=== PATIENT | female | born 1945 | race Caucasian/White ===

== ENCOUNTER → 2016-08-05 | Outpatient (CLI) | payer MEDICARE ==
--- NOTE | 2016-08-05 11:08 | MM ---
Reason for exam: follow-up at short interval from prior study. Last mammogram was performed 7 months ago. History: Patient is postmenopausal and history of other cancer. Took estrogen for 11 years 3 months beginning at age 51. Took progesterone for 11 years 3 months beginning at age 51. Physical Findings: Nurse did not find any significant physical abnormalities on exam. MG 3D Diag Mammo W/Cad RT CC and MLO view(s) were taken of the right breast. Prior study comparison: December 25, 2015, right breast MG 3d work up w/cad RT. December 22, 2015, bilateral MG screening mammo w CAD. No significant new findings when compared with previous films. These results were verbally communicated with the patient and result sheet given to the patient on 08/05/16. ASSESSMENT: Benign, BI-RAD 2 RECOMMENDATION: Return to routine screening mammogram schedule for both breasts. Back on schedule.
== END | disposition home or self-care (01) ==
LOC: RADMAMWWP 10:20
PROVIDERS: ATTEND Family Medicine
DX: R91.8 Other nonspecific abnormal finding of lung field (principal)
CPT/HCPCS: G0206; G0279

== ENCOUNTER → 2016-12-30 | Outpatient (CLI) | payer MEDICARE ==
--- NOTE | 2017-01-03 08:16 | MM ---
Reason for exam: screening (asymptomatic). Last mammogram was performed 5 months ago. History: Patient is postmenopausal and history of other cancer. Took estrogen for 11 years 3 months beginning at age 51. Took progesterone for 11 years 3 months beginning at age 51. Physical Findings: A clinical breast exam by your physician is recommended on an annual basis and results should be correlated with mammographic findings. MG 3D Screening Mammo W/Cad Bilateral CC and MLO view(s) were taken. Prior study comparison: August 05, 2016, right breast MG 3d diag mammo w/cad RT. December 25, 2015, right breast MG 3d work up w/cad RT. No significant changes when compared with prior studies. ASSESSMENT: Benign, BI-RAD 2 RECOMMENDATION: Routine screening mammogram of both breasts in 1 year.
== END | disposition home or self-care (01) ==
LOC: RADMAMWWP 14:50
PROVIDERS: ATTEND Family Medicine
DX: Z12.31 Encounter for screening mammogram for malignant neoplasm of breast (principal)
CPT/HCPCS: 77063; G0202

== ENCOUNTER → 2018-01-11 | Outpatient (CLI) | payer MEDICARE ==
--- NOTE | 2018-01-12 13:09 | MM ---
Reason for exam: screening (asymptomatic). Last mammogram was performed 1 year ago. History: Patient is postmenopausal and history of other cancer. Took estrogen for 11 years 3 months beginning at age 51. Took progesterone for 11 years 3 months beginning at age 51. MG 3D Screening Mammo W/Cad Bilateral CC and MLO view(s) were taken. Prior study comparison: December 30, 2016, bilateral MG 3d screening mammo w/cad. August 05, 2016, right breast MG 3d diag mammo w/cad RT. There are scattered fibroglandular densities. No significant changes when compared with prior studies. ASSESSMENT: Negative, BI-RAD 1 RECOMMENDATION: Routine screening mammogram of both breasts in 1 year.
== END | disposition home or self-care (01) ==
LOC: RADMAMWWP 09:14
PROVIDERS: ATTEND Family Medicine
DX: Z12.31 Encounter for screening mammogram for malignant neoplasm of breast (principal)
CPT/HCPCS: 77063; 77067

== ENCOUNTER → 2019-02-01 | Outpatient (CLI) | payer MEDICARE ==
--- NOTE | 2019-02-01 10:38 | BD ---
EXAMINATION TYPE: Axial Bone Density DATE OF EXAM: 02/01/2019 COMPARISON: 12.22.2015 CLINICAL HISTORY: 74 YR OLD FEMALE.....ICD-10 CODE: Z78.0 MENOPAUSAL STATE Height: 66.5 Weight: 136 FRAX RISK QUESTIONS: History of Fracture in Adulthood: YES RISK FACTORS HISTORY OF: HX OF BROKEN RIBS X7 > AGE 51 YRS OLD Active: YES Postmenopausal woman: YES AT 54 YRS OLD Take estrogen and/or progesterone medications: IN THE PAST FOR 6 YRS, AND PRIOR TO THAT BCPs FOR 20 Y RS Hyperparathyroidism: NO Adrenal Insufficiency: NO MEDICATIONS: Additional Medications: NOTHING TO NOTE Additional History: NOTHING TO NOTE HERE EXAM MEASUREMENTS: Bone mineral densitometry was performed using the [employer] System. Bone mineral density as measured about the Lumbar spine is: ----- L1-L4(G/cm2): 0.956 T Score Values are as follows: ----- L1: -2.2 ----- L2: -2.1 ----- L3: -1.4 ----- L4: -2.0 ----- L1-L4: -1.9 Bone mineral density has: Decreased -1.4% since study of: 12.22.2015 Bone mineral density about the R hip (g/cm2): 0.712 Bone mineral density about the L hip (g/cm2): 0.780 T Score values are as follows: -----R Neck: -2.8 -----L Neck: -1.7 -----R Total: -2.3 -----L Total: -1.8 Bone mineral density has: Decreased -7.1% since study of: 12.22.2015 FRAX%s: THERE IS A 25.2% CHANCE FOR A MAJOR OSTEOPOROTIC FX AND A 8.4% FOR HIP......PROBABILITY FO R FX IN 10 YRS TIME IMPRESSION: Osteopenia about the lumbar spine and bilateral femora. NOTE: T-SCORE=SD OF THE YOUNG ADULT MEAN.
--- NOTE | 2019-02-02 09:27 | MM ---
Reason for exam: screening (asymptomatic). Last mammogram was performed 1 year and 1 month ago. History: Patient is postmenopausal and history of other cancer. Took estrogen for 11 years 3 months beginning at age 51. Took progesterone for 11 years 3 months beginning at age 51. Physical Findings: A clinical breast exam by your physician is recommended on an annual basis and results should be correlated with mammographic findings. MG 3D Screening Mammo W/Cad Bilateral CC and MLO view(s) were taken. Prior study comparison: January 11, 2018, bilateral MG 3d screening mammo w/cad. December 30, 2016, bilateral MG 3d screening mammo w/cad. The breast tissue is heterogeneously dense. This may lower the sensitivity of mammography. Scattered asymmetric densities are unchanged. No persisting abnormality on 3D images. No significant changes when compared with prior studies. ASSESSMENT: Negative, BI-RAD 1 RECOMMENDATION: Routine screening mammogram of both breasts in 1 year.
== END ==
LOC: RADMAMWWP 06:53
PROVIDERS: ATTEND Family Medicine
DX: Z12.31 Encounter for screening mammogram for malignant neoplasm of breast (principal); M85.89 Other specified disorders of bone density and structure, multiple sites; Z78.0 Asymptomatic menopausal state
CPT/HCPCS: 77063; 77067; 77080

== ENCOUNTER 2020-09-22 10:39 | Emergency (ER) | payer MEDICARE ==
[2020-09-22 10:44] VITALS: RESP 18; TEMP 97.9
[2020-09-22] MEDS ORDERED: MORPHINE SULFATE 4 MG/ML SYRINGE IM STA (11:12)
[2020-09-22] MEDS ORDERED: LORazepam 1 MG TAB PO STA (11:12)
[2020-09-22] MEDS ORDERED: GELATIN SPONGE,ABSORB (SMALL) 1 EACH SPONGE TOPICAL STA (11:19)
--- NOTE | 2020-09-22 11:22 | ED ---
General Adult HPI - General Chief complaint: Extremity Injury, Upper Stated complaint: 2 finger tips cut off Time Seen by Provider: 09/22/20 10:53 Source: patient, RN notes reviewed Mode of arrival: wheelchair Limitations: no limitations - History of Present Illness Initial comments: 75-year-old female presents to the emergency room for a chief complaint of laceration. Patient was using a roller cutter to cut fabric when she accidentally lacerated the radial aspect of the left second and third digits. This does involve the nail but does not appear to be down to the bone. Mild bleeding noted. She is up-to-date on tetanus within the past 5 years.Patient has no other complaints at this time including shortness of breath, chest pain, abdominal pain, nausea or vomiting, headache, or visual changes. - Related Data Previous Rx's Medication Instructions Recorded Cephalexin [Keflex] 500 mg PO Q6HR 7 Days #28 cap 09/22/20 Allergies Allergy/AdvReac Type Severity Reaction Status Date / Time honey Allergy Abdominal Verified 09/22/20 10:44 Pain Review of Systems ROS Statement: Those systems with pertinent positive or pertinent negative responses have been documented in the HPI. ROS Other: All systems not noted in ROS Statement are negative. Past Medical History Past Medical History: No Reported History History of Any Multi-Drug Resistant Organisms: None Reported Past Surgical History: Orthopedic Surgery Additional Past Surgical History / Comment(s): feet Smoking Status: Never smoker Past Alcohol Use History: Occasional Past Drug Use History: None Reported General Exam - General Exam Comments Initial Comments: L second digit: Patient has superficial avulsion noted of the radial aspect of the left second digit distal phalanx. This does involve nail bed. Capillary refill less than 2 seconds. Left third digit: Superficial avulsion noted to the radial aspect of the distal phalanx involving nail bed. Does not seem to involve bone Limitations: no limitations General appearance: alert, in no apparent distress Head exam: Present: atraumatic, normocephalic, normal inspection Eye exam: Present: normal appearance, PERRL, EOMI. Absent: scleral icterus, conjunctival injection, periorbital swelling ENT exam: Present: normal exam Neck exam: Present: normal inspection, full ROM. Absent: tenderness Respiratory exam: Present: normal lung sounds bilaterally. Absent: respiratory distress, wheezes Cardiovascular Exam: Present: regular rate, normal rhythm, normal heart sounds Course Vital Signs 09/22/20 09/22/20 09/22/20 10:41 11:37 12:07 Temperature 97.9 F Pulse Rate 84 73 69 Respiratory 18 18 18 Rate Blood Pressure 183/96 145/97 152/96 O2 Sat by Pulse 99 97 97 Oximetry 09/22/20 13:37 Temperature 97.9 F Pulse Rate 73 Respiratory 18 Rate Blood Pressure 141/85 O2 Sat by Pulse 97 Oximetry Medical Decision Making - Medical Decision Making X-ray was recommended however patient adamantly refused. States that she saw it was only soft tissue and did not involve bone. I did irrigate the wounds thoroughly with saline pressure irrigation. Initially tried to apply Gelfoam however the wound on the second finger was bleeding. Therefore let was applied and pressure was applied for 15 minutes. This did stop the bleeding. Gelfoam applied to both fingers and fingers wrapped. Tetanus is arty up-to-date. Patient discharged home to follow up with primary care. Care parameters discussed. She will return here for any worsening symptoms. Disposition Clinical Impression: Avulsion of skin of finger Disposition: HOME SELF-CARE Condition: Good Instructions (If sedation given, give patient instructions): Skin Avulsion (ED) Additional Instructions: Keep gauze in place until Tuesday. At that time on wrapped gauze and soak off the Gelfoam. If gauze comes out of place before Tuesday you can trim gauze off of the Gelfoam. Take antibiotic as directed. Alternate Motrin and Tylenol 3 as needed. You can alternate these every [address] all taking Tylenol 3. Follow-up with your doctor. Return to the emergency room for any worsening symptoms or signs of infection Prescriptions: Cephalexin [Keflex] 500 mg PO Q6HR 7 Days #28 cap Is patient prescribed a controlled substance at d/c from ED?: No Referrals: Serjio Lewis MD [Primary Care Provider] - 1-2 days Time of Disposition: 13:24
[2020-09-22] MEDS ORDERED: GELATIN SPONGE,ABSORB (LARGE) 1 EACH SPONGE TOPICAL STA (12:16)
[2020-09-22] MEDS ORDERED: LIDOCAINE/EPINEPHR/TETRACAINE 5 ML BOTTLE TOPICAL STA (12:18)
[2020-09-22] MEDS ORDERED: LIDOCAINE 1% INJ 10MG/ML (20 ML MDV) SQ ONE (12:18)
[2020-09-22] MEDS ORDERED: ACET/COD 300 MG/30 MG STARTER PACK 6 TAB BTL PO STA (13:25)
[2020-09-22] MEDS ORDERED: CEPHALEXIN 500MG STARTER PACK 4 CAP BTL PO STA (13:25)
[2020-09-22 13:39] VITALS: BP 141/85; PULSE 73
== END 2020-09-22 13:38 | disposition home or self-care (01) ==
LOC: EC 10:39
DX: S61.301A Unspecified open wound of left index finger with damage to nail, initial encounter (principal); S61.303A Unspecified open wound of left middle finger with damage to nail, initial encounter; W26.8XXA Contact with other sharp object(s), not elsewhere classified, initial encounter
CPT/HCPCS: 96372; 99282; J2270; J2001

== ENCOUNTER 2020-12-18 07:57 | Day surgery (SDC) | payer MEDICARE ==
[2020-12-15 12:19] VITALS: BMI 21.1
[~2020-12-18 07:57] MED LIST: LACTATED RINGERS 1,000 ML IV SCH
[2020-12-18 08:21] VITALS: RESP 16; TEMP 97.4
--- NOTE | 2020-12-18 08:23 | P.GSHP ---
History of Present Illness H&P Date: 12/18/20 CHIEF COMPLAINT: Colon screen HISTORY OF PRESENT ILLNESS: The patient is a 75-year-old female who presents for colon screen. Lower endoscopy was offered for further evaluation and management. PAST MEDICAL HISTORY: Please see list. PAST SURGICAL HISTORY: Please see list. MEDICATIONS: Please see list. ALLERGIES: Please see list. SOCIAL HISTORY: No illicit drug use FAMILY HISTORY: No reports of Crohn disease or ulcerative colitis. REVIEW OF ORGAN SYSTEMS: CONSTITUTIONAL: No reports of fevers or chills. PHYSICAL EXAM: VITAL SIGNS: Stable GENERAL: Well-developed pleasant in no acute distress. HEENT: No scleral icterus. Extraocular movements grossly intact. Moist buccal mucosa. NECK: Supple without lymphadenopathy. CHEST: Unlabored respirations. Equal bilateral excursions. CARDIOVASCULAR: Regular rate and rhythm. Distal 2+ pulses. ABDOMEN: Soft, nontender, nondistended. MUSCULOSKELETAL: No clubbing, cyanosis, or edema. ASSESSMENT: 1. Colon screen. PLAN: 1. Recommend proceeding with a lower endoscopy Past Medical History Past Medical History: No Reported History History of Any Multi-Drug Resistant Organisms: None Reported Past Surgical History: Orthopedic Surgery Additional Past Surgical History / Comment(s): kassandra galindo's neuroma surg., colonoscopies, kassandra cataracts removed Past Anesthesia/Blood Transfusion Reactions: No Reported Reaction Smoking Status: Never smoker - Past Family History Sister(s) Family Medical History: Cancer Additional Family Medical History / Comment(s): colon Brother(s) Family Medical History: Cancer Additional Family Medical History / Comment(s): colon Medications and Allergies Home Medications Medication Instructions Recorded Confirmed Type Ascorbic Acid [Vitamin C] 500 mg PO DAILY 12/15/20 12/15/20 History Cholecalciferol [Vitamin D3 (25 25 mcg PO DAILY 12/15/20 12/15/20 History Mcg = 1000 Iu)] Zinc 50 mg PO DAILY 12/15/20 12/15/20 History Allergies Allergy/AdvReac Type Severity Reaction Status Date / Time honey Allergy Abdominal Verified 12/15/20 12:04 Pain Surgical - Exam Vital Signs Temp Pulse Resp BP Pulse Ox 97.4 F L 68 16 151/84 98 12/18/20 08:20 12/18/20 08:20 12/18/20 08:20 12/18/20 08:20 12/18/20 08:20
[2020-12-18] MEDS ORDERED: PROPOFOL 10 MG/ML 20 ML VIAL IV ONE (08:46)
--- NOTE | 2020-12-18 09:15 | P.PCN ---
Date of Procedure: 12/18/20 Description of Procedure: PREOPERATIVE DIAGNOSIS: Family history malignant colon polyps Colonoscopy screening POSTOPERATIVE DIAGNOSIS: Family history malignant colon polyps Colonoscopy screening Tubular adenoma sigmoid colon Scattered diverticulosis OPERATION: Colonoscopy to the ileocecal valve and appendiceal orifice, cecum Colonoscopy with cold forceps biopsy SURGEON: Jeny Tovar MD. ANESTHESIA: MAC. INDICATIONS: The patient is an 75-year-old female who presents family history of malignant colon polyps. Last colonoscopy 7 years. Benefits and risks were described and informed consent was obtained. DESCRIPTION OF PROCEDURE: The patient had undergone Sutab prep. The patient had been brought into the operating room and laid in the left lateral decubitus position. After adequate intravenous sedation, the rectum was examined with 2% lidocaine jelly. The prostate was unremarkable. External hemorrhoids were encountered. The rectal tone was within normal limits. No lesions were palpated in the rectal vault. An Olympus colonoscope was advanced until the cecum, ileocecal valve and appendiceal orifice were clearly viewed. The prep was excellent. Sigmoid diverticulosis was encountered. Colonic polyps were found and removed. No evidence of focal colitis was found. Retroflexion of the scope demonstrated grade 1 internal hemorrhoids without active bleeding or inflammation. The colon was desufflated. The patient had tolerated the procedure well. Withdrawal time was over 6 minutes. FINDINGS: Aronchick preparation quality scale 1 (1-5) Internal hemorrhoids, grade 1 External hemorrhoids, grade 1. No arteriovenous malformations. Sigmoid diverticulosis Removal of 2 polyps: - Cold forceps biopsy at 20 cm from the anal verge, 4 mm to 5 mm polyps, sigmoid colon No focal colitis. RECOMMENDATIONS: Repeat colonoscopy 3 years, 2023 Plan - Discharge Summary Discharge Rx Participant: No New Discharge Prescriptions: Continue Ascorbic Acid [Vitamin C] 500 mg PO DAILY Cholecalciferol [Vitamin D3 (25 Mcg = 1000 Iu)] 25 mcg PO DAILY Zinc 50 mg PO DAILY Discharge Medication List Ascorbic Acid [Vitamin C] 500 mg PO DAILY 12/15/20 [History] Cholecalciferol [Vitamin D3 (25 Mcg = 1000 Iu)] 25 mcg PO DAILY 12/15/20 [History] Zinc 50 mg PO DAILY 12/15/20 [History] Follow up Appointment(s)/Referral(s): Jeny Tovar MD [STAFF PHYSICIAN] - As Needed Patient Instructions/Handouts: Colorectal Polyps (DC), Colonoscopy (DC), Diverticulosis Diet (GEN), Diverticulosis (DC) Activity/Diet/Wound Care/Special Instructions: Repeat colonoscopy 3 years, 2022 Discharge Disposition: HOME SELF-CARE
[2020-12-18 09:27] VITALS: BP 129/81; PULSE 55
== END 2020-12-18 09:45 | disposition home or self-care (01) ==
LOC: ORWHC2ENDO 07:57
PROVIDERS: ATTEND Surgery Plastic and Reconstructive Surgery
DX: Z12.11 Encounter for screening for malignant neoplasm of colon (principal); K63.5 Polyp of colon; K57.30 Diverticulosis of large intestine without perforation or abscess without bleeding; Z80.0 Family history of malignant neoplasm of digestive organs; K64.0 First degree hemorrhoids; Z98.42 Cataract extraction status, left eye; Z98.41 Cataract extraction status, right eye; Z98.890 Other specified postprocedural states; Z91.018 Allergy to other foods
CPT/HCPCS: 88305; 45380; J2704

== ENCOUNTER → 2021-01-20 | Outpatient (CLI) | payer MEDICARE ==
--- NOTE | 2021-01-22 09:00 | MM ---
Reason for exam: screening (asymptomatic). Last mammogram was performed 2 years ago. History: Patient is postmenopausal and history of other cancer. Took estrogen for 11 years 3 months beginning at age 51. Took progesterone for 11 years 3 months beginning at age 51. Physical Findings: A clinical breast exam by your physician is recommended on an annual basis and results should be correlated with mammographic findings. MG 3D Screening Mammo W/Cad Bilateral CC and MLO view(s) were taken. Prior study comparison: February 01, 2019, bilateral MG 3d screening mammo w/cad. January 11, 2018, bilateral MG 3d screening mammo w/cad. There are scattered fibroglandular densities. No significant changes when compared with prior studies. ASSESSMENT: Negative, BI-RAD 1 RECOMMENDATION: Routine screening mammogram of both breasts in 1 year.
== END | disposition home or self-care (01) ==
LOC: RADMAMWWP 08:11
PROVIDERS: ATTEND Family Medicine
DX: Z12.31 Encounter for screening mammogram for malignant neoplasm of breast (principal); Z85.89 Personal history of malignant neoplasm of other organs and systems
CPT/HCPCS: 77063; 77067

== ENCOUNTER → 2022-07-05 | Outpatient (CLI) | payer MEDICARE ==
--- NOTE | 2022-07-05 08:05 | MM ---
Reason for Exam: Clinical finding. Last mammogram was performed 1 year(s) and 5 month(s) ago. Patient History: Menarche at age 17. First Full-Term at age 22. Postmenopausal. Other cancer. Estrogen for 11 years, 3 months, from age 51 until age 62. Progesterone for 11 years, 3 months, from age 51 until age 62. Risk Values: Dimple 5 year model risk: 1.4%. NCI Lifetime model risk: 2.9%. Prior Study Comparison: 11/21/2013 Bilateral Screening Mammogram, [facility]. 12/18/2014 Bilateral Screening Mammogram, [facility]. 12/22/2015 Bilateral Screening Mammogram, [facility]. 12/25/2015 Right Diagnostic Mammogram, [facility]. 08/05/2016 Right Diagnostic Mammogram, [facility]. 12/30/2016 Bilateral Screening Mammogram, [facility]. 01/11/2018 Bilateral Screening Mammogram, [facility]. 02/01/2019 Bilateral Screening Mammogram, [facility]. 01/20/2021 Bilateral Screening Mammogram, [facility]. Tissue Density: The breast tissue is heterogeneously dense. This may lower the sensitivity of mammography. Findings: Analyzed By CAD. There is no suspicious new mass or distortion in either breast. Overall Assessment: Negative, BI-RAD 1 Management: Screening Mammogram of both breasts in 1 year. Managed clinically patient's symptoms of occasional left breast pain. Return to routine follow-up. Results were given to the patient verbally at the time of exam. Electronically signed and approved by: Zbigniew Muniz M.D.
== END | disposition home or self-care (01) ==
LOC: RADMAMWWP 07:30
PROVIDERS: ATTEND Family Medicine
DX: N60.19 Diffuse cystic mastopathy of unspecified breast (principal); N64.4 Mastodynia; Z78.0 Asymptomatic menopausal state
CPT/HCPCS: 77066; G0279; 77062

== ENCOUNTER → 2023-07-28 | Outpatient (CLI) | payer MEDICARE ==
--- NOTE | 2023-07-31 20:03 | MM ---
Reason for Exam: Screening (asymptomatic). Last mammogram was performed 1 year(s) and 1 month(s) ago. Patient History: Menarche at age 17. First Full-Term at age 22. Postmenopausal. Estrogen for 11 years, 3 months, from age 51 until age 62. Progesterone for 11 years, 3 months, from age 51 until age 62. Risk Values: Dimple 5 year model risk: 1.4%. NCI Lifetime model risk: 2.7%. Prior Study Comparison: 02/01/2019 Bilateral Screening Mammogram, [facility]. 01/20/2021 Bilateral Screening Mammogram, [facility]. 07/05/2022 Bilateral MG 3D diag mammo w/cad [place], [facility]. Tissue Density: There are scattered areas of fibroglandular density. Findings: Analyzed By CAD. There is no suspicious group of microcalcifications or new suspicious mass in either breast. Overall Assessment: Negative, BI-RAD 1 Management: Screening Mammogram of both breasts in 1 year. . Patient should continue monthly self-breast exams. A clinical breast exam by your physician is recommended on an annual basis. This exam should not preclude additional follow-up of suspicious palpable abnormalities. Note on Dimple scores and lifetime risk: 1. A Dimple score greater than 3% is considered moderate risk. If this is the case, consider specialist referral to assess eligibility for a risk reducing agent. 2. If overall lifetime risk for the development of breast cancer is 20% or higher, the patient may qualify for future screening with alternating mammogram and breast MRI. Electronically signed and approved by: Monster Munson M.D. Radiologist
== END | disposition home or self-care (01) ==
LOC: RADMAMWWP 13:29
PROVIDERS: ATTEND Family Medicine
DX: Z12.31 Encounter for screening mammogram for malignant neoplasm of breast (principal); Z78.0 Asymptomatic menopausal state
CPT/HCPCS: 77063; 77067

== ENCOUNTER → 2023-07-28 | Outpatient (CLI) | payer MEDICARE ==
--- NOTE | 2023-07-29 20:24 | BD ---
EXAMINATION TYPE: Axial Bone Density DATE OF EXAM: 07/28/2023 CLINICAL HISTORY: 78 years old Female. ICD-10 CODE: Z78.0 ASYMPTOMATIC MENOPAUSAL STATE Height: 66 Weight: 131.0 FRAX RISK QUESTIONS: Alcohol (3 or more units per day): no Family History (Parent hip fracture): no Glucocorticoids (More than 3mos): no (Ex: prednisone, prednisolone, methylprednisolone, dexamethasone, and hydrocortisone). History of Fracture in Adulthood: ribs, foot, toes, fingers Secondary Osteoporosis: 1. Type 1 Diabetes: no 2. Hyperthyroidism: no 3. Menopause before 45: no 4. Malnutrition: no 5. Chronic liver disease: no Rheumatoid Arthritis: no Current Tobacco Use: no RISK FACTORS HISTORY OF: Hip Fracture (Right/Left): no Spine Fracture: no History of Wrist Fracture: no Surgery to Spine/Hip(right/left)/Wrist (right/left): no MEDICATIONS: Thyroid Medications: no Osteoporosis Medications: no EXAM MEASUREMENTS: Bone mineral densitometry was performed using the [employer] System. Bone mineral density as measured about the Lumbar spine is: ----- L1-L4(G/cm2): 0.836 T Score Values are as follows: ----- L1: -3.5 ----- L2: -3.9 ----- L3: -2.5 ----- L4: -1.8 ----- L1-L4: -2.9 Z Score Values are as follows: ----- L1: -1.6 ----- L2: -1.9 ----- L3: -0.5 ----- L4: 0.2 ----- L1-L4: -0.9 Bone mineral density has: decreased -12.6 % since study of: 07/27/2018 Bone mineral density about the R hip (g/cm2): 0.726 Bone mineral density about the L hip (g/cm2): 0.750 T Score values are as follows: -----R Neck: -2.4 -----L Neck: -1.9 -----R Total: -2.2 -----L Total: -2.0 Z Score values are as follows: -----R Neck: -0.3 -----L Neck: 0.2 -----R Total: -0.2 -----L Total: 0.0 Bone mineral density has: decreased -1.1 % since study of: 07/27/2018 FRAX%s: The graph provided illustrates a 22.7% chance for a major osteoporotic fx and a 7.3% chance f or the hips probability for fx in 10 years time. IMPRESSION: Osteoporosis (T Score less than -2.5). There is increased fracture risk and therapy is usually indicated based on age. Re-Screen 1-2 years. NOTE: T-SCORE=SD OF THE YOUNG ADULT MEAN.
== END | disposition home or self-care (01) ==
LOC: RADBDWWP 13:30
PROVIDERS: ATTEND Family Medicine
DX: M81.0 Age-related osteoporosis without current pathological fracture (principal); M85.89 Other specified disorders of bone density and structure, multiple sites; Z78.0 Asymptomatic menopausal state
CPT/HCPCS: 77080

== ENCOUNTER → 2023-08-15 | Outpatient (CLI) | payer MEDICARE ==
[~2023-08-15] MED LIST changes: +DENOSUMAB 60 MG/ML 1 ML SYRINGE SQ NR; -LACTATED RINGERS 1,000 ML IV SCH
[2023-08-15 15:00] VITALS: BP 122/68; PULSE 64; RESP 16; TEMP 98
== END ==
LOC: PROCWHC3 14:11
PROVIDERS: ATTEND Nurse Practitioner Family
DX: M81.0 Age-related osteoporosis without current pathological fracture (principal)
CPT/HCPCS: 96372; J0897

== ENCOUNTER 2024-01-18 09:42 | Day surgery (SDC) | payer MEDICARE ==
--- NOTE | 2024-01-18 07:44 | P.GSHP ---
History of Present Illness H&P Date: 01/18/24 CHIEF COMPLAINT: Colon screen HISTORY OF PRESENT ILLNESS: The patient is a 78-year-old female who presents for colon screen. Lower endoscopy was offered for further evaluation and management. PAST MEDICAL HISTORY: Please see list. PAST SURGICAL HISTORY: Please see list. MEDICATIONS: Please see list. ALLERGIES: Please see list. SOCIAL HISTORY: No illicit drug use FAMILY HISTORY: No reports of Crohn disease or ulcerative colitis. REVIEW OF ORGAN SYSTEMS: CONSTITUTIONAL: No reports of fevers or chills. PHYSICAL EXAM: VITAL SIGNS: Stable GENERAL: Well-developed pleasant in no acute distress. HEENT: No scleral icterus. Extraocular movements grossly intact. Moist buccal mucosa. NECK: Supple without lymphadenopathy. CHEST: Unlabored respirations. Equal bilateral excursions. CARDIOVASCULAR: Regular rate and rhythm. Distal 2+ pulses. ABDOMEN: Soft, nontender, nondistended. MUSCULOSKELETAL: No clubbing, cyanosis, or edema. ASSESSMENT: 1. Colon screen. PLAN: 1. Recommend proceeding with a lower endoscopy Past Medical History Past Medical History: No Reported History Additional Past Medical History / Comment(s): OSTEOPOROSIS. History of Any Multi-Drug Resistant Organisms: None Reported Past Surgical History: Orthopedic Surgery Additional Past Surgical History / Comment(s): kassandra galindo's neuroma surg., colonoscopies, kassandra cataracts removed Past Anesthesia/Blood Transfusion Reactions: No Reported Reaction Past Psychological History: No Psychological Hx Reported Smoking Status: Never smoker Past Alcohol Use History: Occasional Past Drug Use History: None Reported - Past Family History Sister(s) Family Medical History: Cancer Additional Family Medical History / Comment(s): colon Brother(s) Family Medical History: Cancer Additional Family Medical History / Comment(s): colon Medications and Allergies Home Medications Medication Instructions Recorded Confirmed Type Ascorbic Acid [Vitamin C] 500 mg PO DAILY 12/15/20 08/15/23 History Cholecalciferol [Vitamin D3 (25 25 mcg PO DAILY 12/15/20 08/15/23 History Mcg = 1000 Iu)] Zinc 50 mg PO DAILY 12/15/20 08/15/23 History Allergies Allergy/AdvReac Type Severity Reaction Status Date / Time honey Allergy Abdominal Verified 08/15/23 14:55 Pain
[2024-01-18] MEDS: IV FLUID CONTINUATION 1,000 ML IV ONE (10:10)
[2024-01-18] MEDS: LIDOCAINE 1% (10MG/ML) FOR IV START INTRADERMA STA (10:10)
[2024-01-18] MEDS: LACTATED RINGERS 1,000 ML BAG IV STA (10:10)
[2024-01-18 10:25] VITALS: TEMP 97.9
[2024-01-18] MEDS ORDERED: PROPOFOL 10 MG/ML 20 ML VIAL IV ONE (11:10)
--- NOTE | 2024-01-18 11:45 | P.PCN ---
Date of Procedure: 01/18/24 Description of Procedure: PREOPERATIVE DIAGNOSIS: History of colon polyp Colonoscopy screening. POSTOPERATIVE DIAGNOSIS: Colonoscopy screening. Diverticulosis, scattered. OPERATION: Colonoscopy to the cecum, ileocecal valve and appendiceal orifice. SURGEON: Jeny Tovar MD. ANESTHESIA: MAC. INDICATIONS: The patient is a 78-year-old female who presents for colonoscopy screening. Last colonoscopy 5 years ago. Benefits and risks were described and informed consent was obtained. DESCRIPTION OF PROCEDURE: The patient had undergone GoLytely prep. The patient had been brought into the operating room and laid in the left lateral decubitus position. After adequate intravenous sedation, the rectum was examined with 2% lidocaine jelly. No external hemorrhoids were encountered. The rectal tone was within normal limits. No lesions were palpated in the rectal vault. An Olympus colonoscope was a dvanced until the cecum, ileocecal valve and appendiceal orifice were clearly viewed. The prep was excellent. Scattered diverticulosis was encountered. No colonic polyps were found. No evidence of focal colitis was found. Retroflexion of the scope demonstrated grade 1 internal hemorrhoids without active bleeding or inflammation. The colon was desufflated. The patient had tolerated the procedure well. Withdrawal time was over 6 minutes. FINDINGS: Aronchick preparation quality scale 1 (1-5) Internal hemorrhoids, grade 1 No external prolapsed hemorrhoids. No arteriovenous malformations. No adenomatous polyps. No focal colitis. Scattered sigmoid diverticulosis Highly redundant sigmoid colon RECOMMENDATIONS: Lower endoscopy in 5 years, 2028 Plan - Discharge Summary New Discharge Prescriptions: Continue Ascorbic Acid [Vitamin C] 500 mg PO DAILY Calcium Carbonate/Vitamin D3 [Calcium 500 mg Chewable Tablet] 2 tab PO DAILY Denosumab [Prolia] 60 mg SQ DIRECTED Cholecalciferol [Vitamin D3 (25 Mcg = 1000 Iu)] 25 mcg PO DAILY Zinc 50 mg PO DAILY Discharge Medication List Ascorbic Acid [Vitamin C] 500 mg PO DAILY 12/15/20 [History] Cholecalciferol [Vitamin D3 (25 Mcg = 1000 Iu)] 25 mcg PO DAILY 12/15/20 [History] Zinc 50 mg PO DAILY 12/15/20 [History] Calcium Carbonate/Vitamin D3 [Calcium 500 mg Chewable Tablet] 2 tab PO DAILY 01/18/24 [History] Denosumab [Prolia] 60 mg SQ DIRECTED 01/18/24 [History] Follow up Appointment(s)/Referral(s): Jeny Tovar MD [STAFF PHYSICIAN] - As Needed Patient Instructions/Handouts: Diverticulosis Diet (GEN), Diverticulosis (DC) Activity/Diet/Wound Care/Special Instructions: Repeat colonoscopy in 5 years, 2028 Discharge Disposition: HOME SELF-CARE
[2024-01-18 12:03] VITALS: BP 99/68; PULSE 69; RESP 16
== END 2024-01-18 12:35 | disposition home or self-care (01) ==
LOC: ORWHC2ENDO 09:42
PROVIDERS: ATTEND Surgery Plastic and Reconstructive Surgery
DX: Z12.11 Encounter for screening for malignant neoplasm of colon (principal); K57.30 Diverticulosis of large intestine without perforation or abscess without bleeding; M81.0 Age-related osteoporosis without current pathological fracture; Z86.0100 Personal history of colon polyps, unspecified; Z79.899 Other long term (current) drug therapy
CPT/HCPCS: J2704; G0121; 45378

== ENCOUNTER → 2024-02-15 | Outpatient (CLI) | payer MEDICARE ==
[2024-02-15 14:11] VITALS: BP 128/85; PULSE 76; RESP 16; TEMP 97.5
[2024-02-15] MEDS: DENOSUMAB 60 MG/ML 1 ML SYRINGE SQ NR (14:15)
== END ==
LOC: PROCWHC3 14:03
PROVIDERS: ATTEND Nurse Practitioner Family
DX: M81.0 Age-related osteoporosis without current pathological fracture (principal)
CPT/HCPCS: 96372; J0897

== ENCOUNTER → 2024-09-18 | Outpatient (CLI) | payer MEDICARE ==
--- NOTE | 2024-09-18 07:54 | US ---
EXAMINATION TYPE: US duplex aorta DATE OF EXAM: 09/18/2024 COMPARISON: NONE CLINICAL INDICATION: Female, 79 years old with history of I70.0 ATHEROSCLEROSIS OF AORTA; Patient h ad an xray done, and the doctor thought they saw something. TECHNIQUE: Multiple sonographic images of the abdominal aorta are obtained with grayscale and color D oppler imaging. FINDINGS: EXAM MEASUREMENTS: Abdominal Aorta: Proximal: 2.9 x 2.9 cm Mid: 2.2 x 2.2 cm Distal: 1.8 x 1.9 cm Bifurcation: Right Iliac: 1.2 x 1.7 cm Left Iliac: 1.4 x 1.4 cm GALVANIZER ZINC NOTES: *Proximal segment appears ectatic. *Plaque seen within aorta. Common iliac arteri es appear tortuous. *Right common iliac artery measures 1.7 cm in transverse- aneurysmal* Ectatic appearance of the proximal abdominal aorta. Plaque seen within the abdominal aorta. Tortuous appearance to the bilateral common iliac arteries. Fusiform aneurysmal dilatation of the right common iliac artery measuring 1.7 cm. IMPRESSION: 1. Ectatic appearance of the proximal abdominal aorta measuring up to 2.9 cm. 2. 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 [facility], , 09/18/2024 7:51 AM
--- NOTE | 2024-09-18 08:20 | MM ---
Reason for Exam: Screening (asymptomatic). Last mammogram was performed 1 year(s) and 2 month(s) ago. Patient History: Menarche at age 17. First Full-Term at age 22. Postmenopausal. Estrogen for 11 years, 3 months, from age 51 until age 62. Progesterone for 11 years, 3 months, from age 51 until age 62. Risk Values: Dimple 5 year model risk: 1.4%. NCI Lifetime model risk: 2.5%. Prior Study Comparison: 01/20/2021 Bilateral Screening Mammogram, [facility]. 07/05/2022 Bilateral MG 3D diag mammo w/cad [facility]. 07/28/2023 Bilateral MG 3D screening mammo w/cad, [facility]. Tissue Density: There are scattered areas of fibroglandular density. Findings: Analyzed By CAD. There is no suspicious group of microcalcifications or new suspicious mass in either breast. Overall Assessment: Negative, BI-RAD 1 Management: Screening Mammogram of both breasts in 1 year. . Patient should continue monthly self-breast exams. A clinical breast exam by your physician is recommended on an annual basis. This exam should not preclude additional follow-up of suspicious palpable abnormalities. Note on Dimple scores and lifetime risk: 1. A Dimple score greater than 3% is considered moderate risk. If this is the case, consider specialist referral to assess eligibility for a risk reducing agent. 2. If overall lifetime risk for the development of breast cancer is 20% or higher, the patient may qualify for future screening with alternating mammogram and breast MRI. [facility], , 09/18/2024 8:17 AM. Electronically signed and approved by: Zbigniew Muniz M.D.
== END | disposition home or self-care (01) ==
LOC: RADMAMWWP 07:13
PROVIDERS: ATTEND Family Medicine
DX: Z12.31 Encounter for screening mammogram for malignant neoplasm of breast (principal); R92.323 Mammographic fibroglandular density, bilateral breasts; Z78.0 Asymptomatic menopausal state; I72.3 Aneurysm of iliac artery
CPT/HCPCS: 77063; 77067; 93979